=== PATIENT | male | born 1990 | race Caucasian/White ===

== ENCOUNTER 2016-05-03 09:32 | Emergency (ER) | payer SELFPAY ==
[~2016-05-03] VITALS: Ht 167.6 cm; Wt 81.0 kg
[2016-05-03 09:36] VITALS: Ht 167.6 cm; Wt 81.0 kg
[2016-05-03] MEDS ORDERED: HYDROCODONE/APAP (5/325) TAB PO ONE (10:30)
[2016-05-03] MEDS ORDERED: ONDANSETRON (ODT) 4 MG TAB ODT STA (11:13)
--- NOTE | 2016-05-03 11:39 | RADRPT ---
PROCEDURE: CT Brain without. CLINICAL INDICATION: Headache and neck pain TECHNIQUE: A CT of the brain was performed utilizing axial sections from the skull base through th e vertex without contrast. The scan was reviewed in soft tissue brain and high frequency resolution bone algorithm windows. Images were reviewed on a high-resolution PACS workstation. The exam DLP = 634 mGy-cm. One or more of the following dose reduction techniques were used: Automated exposure control Adjustment of the mA and/or kV according to patient size. Use of iterative reconstruction technique. COMPARISON: None available FINDINGS: The ventricles and sulci are symmetric and normal in size and morphology. There is no acute intracr anial hemorrhage, an acute large territorial infarct, an abnormal extra-axial fluid collection, or a space-occupying intracranial mass. There is no mass effect or midline shift. The dominguez-white matte r differentiation is intact. The posterior fossa, brainstem, and basal cisterns are unremarkable. The subcutaneous soft tissues and scalp are unremarkable. There are no acute fractures. The visual ized mastoid air cells and paranasal sinuses are clear. The bilateral globes and orbits are unremar kable. RPTAT: AA IMPRESSION: No acute intracranial abnormality. .Micheline Norman MD, MD Date Time Electronically viewed and signed by .Micheline Norman MD, on 05/03/2016 11:38 .T/
--- NOTE | 2016-05-03 11:42 | RADRPT ---
PROCEDURE: CT CERVICAL SPINE WITHOUT CONTRAST CLINICAL INDICATION: Headache and neck pain for 5 days TECHNIQUE: CT scan of the cervical spine was performed. No IV contrast was administered. Coronal and sagittal reformatted images were obtained from the axial source images. Images were reviewed on a high-resolution PACS workstation. Dose report: Total exam DLP: 523 mGy-cm. CDTIvol = 22 mGy. One or more of the following dose reduction techniques were used: Automated exposure control Adjustment of the mA and/or kV according to patient size. Use of iterative reconstruction technique. COMPARISON: None FINDINGS: The vertebral body heights are preserved. There are no acute fractures. The craniocervical junctio n and C1-C2 articulation are intact. The prevertebral and paravertebral soft tissues are unremarkabl e. Findings at specific disc levels: C2-3: Normal disk height. No central canal or neural foraminal narrowing. C3-4: Normal disk height. Minimal anterolisthesis. No central canal or neural foraminal narrowing. C4-5: Normal disk height. No central canal or neural foraminal narrowing. C5-6: Normal disk height. No central canal or neural foraminal narrowing. C6-7: Normal disk height. No central canal or neural foraminal narrowing. C7-T1: Normal disk height. No central canal or neural foraminal narrowing. RPTAT: AA IMPRESSION: No acute bony abnormality. No significant degenerative disk disease within the cervical spine. No central canal or neural foraminal narrowing. .Micheline Norman MD, Date Time Electronically viewed and signed by .Micheline Norman MD, on 05/03/2016 11:41 .T/
[2016-05-03] MEDS ORDERED: KETOROLAC 30 MG INJ IM STA (11:59)
--- NOTE | 2016-05-03 11:59 | ERD ---
ER Documentation Chief Complaint Date/Time DATE: 05/03/16 TIME: 11:58 Chief Complaint NECK PAIN /HEADCAHE X 5 DAYS , NO TRAUMA HPI This is a 25-year-old male who presents to the emergency department today complaining of left-sided neck pain and headache for the past 5 days. 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 States he is taking Excedrin for the pain. Denies any nausea vomiting blurred vision, fevers or chills. ROS All systems reviewed and are negative except as per history of present illness. Medications Home Meds Active Scripts Cyclobenzaprine Hcl* (Cyclobenzaprine Hcl*) 10 Mg Tablet, 10 MG PO QHS, #7 TAB Prov:GORDY AWAD PA-C 05/03/16 Naproxen* (Naprosyn*) 500 Mg Tablet, 500 MG PO BID Y for PAIN AND/OR INFLAMMATION, #30 TAB Prov:GORDY AWAD PA-C 05/03/16 Hydrocodone/Acetaminophen ([place] 5-325 Tablet) 1 Each Tablet, 1 TAB PO Q6H Y for PAIN, #12 TAB Prov:GORDY AWADC 05/03/16 Allergies Allergies: Coded Allergies: Penicillins (Unverified Allergy, Unknown, 05/03/16) Uncoded Allergies: PENICILIN (Allergy, Unknown, 05/03/16) PMhx/Soc History of Surgery: No Anesthesia Reaction: No Hx Neurological Disorder: No Hx Respiratory Disorders: No Hx Cardiac Disorders: No Hx Psychiatric Problems: No Hx Miscellaneous Medical Probl: No Hx Alcohol Use: No Hx Substance Use: No Hx Tobacco Use: No Physical Exam Vitals Vital Signs Date Time Temp Pulse Resp B/P Pulse Ox O2 Delivery O2 Flow Rate FiO2 05/03/16 09:36 98.3 96 18 116/64 98 Physical Exam Const: No acute distress Head: Atraumatic Eyes: Normal Conjunctiva. PERRLA. EOM intact ENT: Normal External Ears, Nose and Mouth. Neck: Full range of motion..~ No meningismus. Tenderness palpation left-sided paraspinal. No midline tenderness. Resp: Clear to auscultation bilaterally Cardio: Regular rate and rhythm, no murmurs Skin: No petechiae or rashes Back: No midline or flank tenderness Ext: No cyanosis, or edema Neur: Awake and alert. No focal neurologic deficits. No gait ataxia. Psych: Normal Mood and Affect Results 24 hrs Current Medications Medications (Trade) Dose Ordered Sig/[place] Route PRN Reason Start Time Stop Time Status Last Admin Dose Admin Acetaminophen/ Hydrocodone Bitart ([place] (5/325)) 1 tab ONCE ONCE PO 05/03/16 10:30 05/03/16 10:31 DC 05/03/16 10:20 Ondansetron HCl (Zofran Odt) 4 mg ONCE STAT ODT 05/03/16 11:13 05/03/16 11:14 DC 05/03/16 11:17 Ketorolac Tromethamine (Toradol) 30 mg ONCE STAT IM 05/03/16 11:59 05/03/16 12:00 DC 05/03/16 12:05 DIAGNOSTIC IMAGING REPORT Patient: VANESSA HUTTON : 1990 Age: 25 Sex: M MR #: [id number] DOS: 05/03/16 0000 Ordering MD: GORDY AWAD PA-C Location: [facility] Room/Bed: PROCEDURE: CT CERVICAL SPINE WITHOUT CONTRAST CLINICAL INDICATION: Headache and neck pain for 5 days TECHNIQUE: CT scan of the cervical spine was performed. No IV contrast was administered. Coronal and sagittal reformatted images were obtained from the axial source images. Images were reviewed on a high-resolution PACS workstation. Dose report: Total exam DLP: 523 mGy-cm. CDTIvol = 22 mGy. One or more of the following dose reduction techniques were used: Automated exposure control Adjustment of the mA and/or kV according to patient size. Use of iterative reconstruction technique. COMPARISON: None FINDINGS: The vertebral body heights are preserved. There are no acute fractures. The craniocervical junction and C1-C2 articulation are intact. The prevertebral and paravertebral soft tissues are unremarkable. Findings at specific disc levels: C2-3: Normal disk height. No central canal or neural foraminal narrowing. C3-4: Normal disk height. Minimal anterolisthesis. No central canal or neural foraminal narrowing. C4-5: Normal disk height. No central canal or neural foraminal narrowing. C5-6: Normal disk height. No central canal or neural foraminal narrowing. C6-7: Normal disk height. No central canal or neural foraminal narrowing. C7-T1: Normal disk height. No central canal or neural foraminal narrowing. RPTAT: AA IMPRESSION: No acute bony abnormality. No significant degenerative disk disease within the cervical spine. No central canal or neural foraminal narrowing. .Micheline Norman MD, Date Time Electronically viewed and signed by .Micheline Norman MD, MD on 05/03/2016 11: 41 .T/ CC: GORDY AWAD PA-C DIAGNOSTIC IMAGING REPORT Patient: VANESSA HUTTON : 1990 Age: 25 Sex: M MR #: [id number] DOS: 05/03/16 0000 Ordering MD: GORDY AWAD PA-C Location: [facility] Room/Bed: PROCEDURE: CT Brain without. CLINICAL INDICATION: Headache and neck pain TECHNIQUE: A CT of the brain was performed utilizing axial sections from the skull base through the vertex without contrast. The scan was reviewed in soft tissue brain and high frequency resolution bone algorithm windows. Images were reviewed on a high-resolution PACS workstation. The exam DLP = 634 mGy-cm. One or more of the following dose reduction techniques were used: Automated exposure control Adjustment of the mA and/or kV according to patient size. Use of iterative reconstruction technique. COMPARISON: None available FINDINGS: The ventricles and sulci are symmetric and normal in size and morphology. There is no acute intracranial hemorrhage, an acute large territorial infarct, an abnormal extra-axial fluid collection, or a space-occupying intracranial mass. There is no mass effect or midline shift. The dominguez-white matter differentiation is intact. The posterior fossa, brainstem, and basal cisterns are unremarkable. The subcutaneous soft tissues and scalp are unremarkable. There are no acute fractures. The visualized mastoid air cells and paranasal sinuses are clear. The bilateral globes and orbits are unremarkable. RPTAT: AA IMPRESSION: No acute intracranial abnormality. .Micheline Norman MD, Date Time Electronically viewed and signed by .Micheline Norman MD, on 05/03/2016 11: 38 .T/ CC: GORDY AWAD PA-C Procedures/MDM This 25-year-old male who presents to the emergency department today complaining of left-sided neck pain and headache that has been ongoing for the past 5 days and is persistent. Patient did not have any focal neurologic deficits and no gait ataxia and therefore I did not initially order a CT scan however patient was given Hartford here in the emergency department patient was complaining of persistent headache. Patient was also nauseated. He is then given Zofran after the [place]. Given the patient's persistent headache I did discuss the patient with Dr. Navarro and he has recommended a head and cervical spine CT. Head CT is unremarkable. There is no acute intracranial abnormality. There is no mass-effect or midline shift. Low suspicion for acute hemorrhage, mass, abscess. Cervical spine CT shows no acute bony abnormality. There is no significant degenerative disc disease within the cervical spine. There is no central canal or neural foraminal narrowing. Patient symptoms at this time most consistent with neck strain versus muscle spasm likely causing tension type headache. Patient is afebrile and otherwise well-appearing. He does have full range of motion of his neck and I have low suspicion for meningitis, abscess. Patient was then given a Toradol injection. Patient will be discharged home with Naprosyn, Flexeril and a short course of Hartford. At this time the patient is stable for discharge and outpatient management. Patient should follow up with their PCP in the next 1-2 days. They may return to the emergency department sooner for any persistent or worsening of symptoms. Patient understood and agreed with the plan. Departure Diagnosis: Primary Impression: Headache Headache type: tension-type Headache chronicity pattern: unspecified pattern Intractability: not intractable Qualified Code: G44.209 - Tension- type headache, not intractable, unspecified chronicity pattern Additional Impression: Neck pain Condition: GORDY Oh PA-C May 03, 2016 11:59
[2016-05-03] MEDS ORDERED: HYDR-906 PO (12:05)
[2016-05-03] MEDS ORDERED: NAPR-260 PO (12:06)
[2016-05-03] MEDS ORDERED: CYCL-319 PO (12:06)
== END 2016-05-03 12:16 | disposition home or self-care (01) ==
LOC: FTE 09:32
DX: G44.209 Tension-type headache, unspecified, not intractable (principal); M54.2 Cervicalgia
CPT/HCPCS: 70450; 72125; 96372; 99285; J1885

== ENCOUNTER 2018-01-27 23:03 | Emergency (ER) | END 2018-01-28 01:09 | disposition home or self-care (01) ==

== ENCOUNTER 2018-03-06 09:43 | Emergency (ER) | payer OTHER ==
[~2018-03-06] VITALS: Ht 165.1 cm; Wt 82.6 kg
[~2018-03-06 09:43] MED LIST: CYCL10TA7 PO; HYDR-4011 PO; NAPR-985 PO; ONDA4TAB14 PO
[2018-03-06 09:50] VITALS: BP 115/71; PULSE 74; RESP 20; Ht 165.1 cm; Wt 82.6 kg
--- NOTE | 2018-03-06 10:23 | ERD ---
ER Documentation Chief Complaint Chief Complaint Complains of chest wall pain x 1 week HPI 27-year-old male, with history of anxiety, presents to the emergency department, complaining of 2 months with intermittent episodes of left anterior chest wall pain, worsened by palpation and movement of the left arm. The pain he has been getting worse during the last 2 days. The patient denies any shortness of breath, no dizziness, no palpitations, no history of trauma or upper respiratory infection. ROS All systems reviewed and are negative except as per history of present illness. Medications Home Meds Active Scripts Acetaminophen* (Tylenol*) 325 Mg Tablet, 2 TAB PO Q8 PRN for PAIN AND OR ELEVATED TEMP, #20 TAB Prov:ESTELLE DELUCA MD 03/06/18 Ondansetron (Ondansetron Odt) 4 Mg Tab.rapdis, 4 MG PO Q6H PRN for NAUSEA AND/OR VOMITING, #10 TAB Prov:GREGORIO LYNN PA-C 01/28/18 Cyclobenzaprine Hcl* (Cyclobenzaprine Hcl*) 10 Mg Tablet, 10 MG PO QHS, #7 TAB Prov:GORDY AWAD PA-C 05/03/16 Naproxen* (Naprosyn*) 500 Mg Tablet, 500 MG PO BID PRN for PAIN AND/OR INFLAMMATION, #30 TAB Prov:GORDY AWAD PA-C 05/03/16 Hydrocodone/Acetaminophen ([place] 5-325 Tablet) 1 Each Tablet, 1 TAB PO Q6H PRN for PAIN, #12 TAB Prov:GORDY AWAD PA-C 05/03/16 Allergies Allergies: Coded Allergies: Penicillins (Unverified Allergy, Unknown, 05/03/16) Uncoded Allergies: PENICILIN (Allergy, Unknown, 05/03/16) PMhx/Soc History of Surgery: No Anesthesia Reaction: No Hx Neurological Disorder: No Hx Respiratory Disorders: No Hx Cardiac Disorders: No Hx Psychiatric Problems: No Hx Miscellaneous Medical Probl: No Hx Alcohol Use: No Hx Substance Use: No Hx Tobacco Use: No FmHx Family History: diabetes, coronary disease Physical Exam Vitals Vital Signs Date Temp Pulse Resp B/P (MAP) Pulse Ox O2 O2 Flow FiO2 Time Delivery Rate 03/06/18 98.1 74 20 115/71 98 09:50 (86) Physical Exam Const: No acute distress Head: Atraumatic Eyes: Normal Conjunctiva ENT: Normal External Ears, Nose and Mouth. Neck: Full range of motion. No meningismus. Resp: Clear to auscultation bilaterally. Mild tenderness to palpation of the anterior chest wall. No deformity, no crepitus. Cardio: Regular rate and rhythm, no murmurs Abd: Soft, non tender, non distended. Normal bowel sounds Skin: No petechiae or rashes Back: No midline or flank tenderness Ext: No cyanosis, or edema Neur: Awake and alert Psych: Normal Mood and Affect Results 24 hrs EKG read by me: Rate/Rhythm: Regular rate and rhythm at a rate of 72 Intervals: Normal No acute ST changes. No T wave inversion Impression: No evidence of acute ischemia or arrhythmia Procedures/MDM Vital signs stable. Differential diagnosis include but not limited to: URI, PNA, chostochondritis, GERD, musculoskeletal injury, less likely PE, pericarditis, endocarditis. Pertinent Data: 12 Lead ECG: Sinus rhythm, no ST changes, normal T wave, normal intervals Radiology: Chest x-rays: Normal Physical examination and clinical presentation consistent most likely with atypical chest pain most likely secondary to costochondritis. During the ED course the patient remained stable, no new complaints. Results and clinical impression discussed with patient who agrees with management. The patient is stable to be treated outpatient and will be discharged home with a Rx for ibuprofen, some side effects of prescribed medications (headache, rash, nausea, vomiting, diarrhea, drowsiness, habituation, bleeding, hypertension, interactions with other medications) were reviewed. The patient was instructed to follow up with the primary care provider in the next 48h. If symptoms persist, worsen or new symptoms develop, then patient should return to the ED immediately. Instructions explained and given directly by me to the patient with acknowledgment and demonstrated understanding. Disclaimer: Inadvertent spelling and grammatical errors are likely due to EHR/dictation software use and do not reflect on the overall quality of patient care. Also, please note that the electronic time recorded on this note does not necessarily reflect the actual time of the patient encounter. Departure Diagnosis: Primary Impression: Costochondritis Condition: Stable Additional Instructions: Thank you very much for allowing us to participate in your care. Your health and safety is our top priority at [facility]. Call your primary care doctor TOMORROW for an appointment during the next 2-4 days and bring all the information and medications prescribed. Have prescriptions filled and follow precisely the directions on the label. If the symptoms get worse and your provider is unavailable, return to the Emergency Department immediately. ESTELLE DELUCA MD Mar 06, 2018 10:23
[2018-03-06] MEDS ORDERED: ACET325T33 PO (11:06)
== END 2018-03-06 11:30 | disposition home or self-care (01) ==
LOC: FTE 09:43
DX: M94.0 Chondrocostal junction syndrome [Tietze] (principal)
CPT/HCPCS: 71046; 93005; Z7502

== ENCOUNTER 2018-05-02 09:46 | Emergency (ER) | payer OTHER ==
[~2018-05-02] VITALS: Ht 167.6 cm; Wt 77.2 kg
[~2018-05-02 09:46] MED LIST changes: +ACET325T33 PO
[2018-05-02 10:01] VITALS: Ht 167.6 cm; Wt 77.2 kg
[2018-05-02] MEDS ORDERED: ONDA4TAB14 PO (13:16)
[2018-05-02 13:55] VITALS: BP 122/70; PULSE 67; RESP 18
--- NOTE | 2018-05-02 15:03 | ERD ---
ER Documentation Chief Complaint Chief Complaint Complains of fever with numbness x 3 days HPI 27-year-old male presenting with complaints of "feeling hot". Patient states he feels his skin is boiling. He has no rashes. He has not taken medications for symptoms. Denies abdominal pain. Denies coughing. Denies runny nose. Denies sore throat. Denies abdominal pain. States that he feels nauseous but no vomiting. Has not taken medications for symptoms. Has no documented fevers. Denies medical problems. Allergy to penicillin. Surgical history denies. Social history denies ROS All systems reviewed and are negative except as per history of present illness. Medications Home Meds Active Scripts Ondansetron (Ondansetron Odt) 4 Mg Tab.rapdis, 4 MG PO Q6H PRN for NAUSEA AND/OR VOMITING, #10 TAB Prov:KEVIN GOODWIN PA-C 05/02/18 Acetaminophen* (Tylenol*) 325 Mg Tablet, 2 TAB PO Q8 PRN for PAIN AND OR ELEVATED TEMP, #20 TAB Prov:ESTELLE DELUCA MD 03/06/18 Ondansetron (Ondansetron Odt) 4 Mg Tab.rapdis, 4 MG PO Q6H PRN for NAUSEA AND/OR VOMITING, #10 TAB Prov:GREGORIO LYNN PA-C 01/28/18 Cyclobenzaprine Hcl* (Cyclobenzaprine Hcl*) 10 Mg Tablet, 10 MG PO QHS, #7 TAB Prov:GORDY AWAD PA-C 05/03/16 Naproxen* (Naprosyn*) 500 Mg Tablet, 500 MG PO BID PRN for PAIN AND/OR INFLAMMATION, #30 TAB Prov:GORDY AWAD PA-C 05/03/16 Hydrocodone/Acetaminophen ([place] 5-325 Tablet) 1 Each Tablet, 1 TAB PO Q6H PRN for PAIN, #12 TAB Prov:GORDY AWAD PA-C 05/03/16 Allergies Allergies: Coded Allergies: Penicillins (Unverified Allergy, Unknown, 05/03/16) Uncoded Allergies: PENICILIN (Allergy, Unknown, 05/03/16) PMhx/Soc Medical and Surgical Hx: pt denies Medical Hx, pt denies Surgical Hx History of Surgery: No Anesthesia Reaction: No Hx Neurological Disorder: No Hx Respiratory Disorders: No Hx Cardiac Disorders: No Hx Psychiatric Problems: No Hx Miscellaneous Medical Probl: No Hx Alcohol Use: No Hx Substance Use: No Hx Tobacco Use: No Smoking Status: Never smoker FmHx Family History: No diabetes, No coronary disease, No other Physical Exam Vitals Vital Signs Date Temp Pulse Resp B/P (MAP) Pulse Ox O2 O2 Flow FiO2 Time Delivery Rate 05/02/18 98.6 67 18 122/70 98 Room Air 13:55 (87) 05/02/18 98.6 71 20 119/71 98 10:01 (87) Physical Exam GENERAL: The patient is well-appearing, well-nourished, in no acute distress HEENT: Atraumatic. Conjunctivae are pink. Pupils equal, round, and reactive to light. There is no scleral icterus. Tympanic membranes clear bilaterally. Oropharynx clear. NECK: C-spine is soft and supple. There is no meningismus. There is no cervical lymphadenopathy. CHEST: Clear to auscultation bilaterally. There are no rales, wheezes or rhonchi. HEART: Regular rate and rhythm. No murmurs, clicks, rubs or gallops. ABDOMEN:Soft, nontender and nondistended. Good bowel sounds. No rebound or guarding. No gross peritonitis. No gross organomegaly or masses. No Lloyd sign or McBurney point tenderness. Result Diagram: 05/02/18 1130 05/02/18 1130 Results 24 hrs Laboratory Tests Test 05/02/18 11:30 White Blood Count 5.9 10^3/ul Red Blood Count 5.55 10^6/ul Hemoglobin 15.9 g/dl Hematocrit 48.8 % Mean Corpuscular Volume 87.9 fl Mean Corpuscular Hemoglobin 28.6 pg Mean Corpuscular Hemoglobin Concent 32.6 g/dl Red Cell Distribution Width 12.1 % Platelet Count 239 10^3/UL Mean Platelet Volume 9.9 fl Immature Granulocytes % 0.200 % Neutrophils % 49.8 % Lymphocytes % 40.7 % Monocytes % 8.0 % Eosinophils % 1.0 % Basophils % 0.3 % Nucleated Red Blood Cells % 0.0 /100WBC Immature Granulocytes # 0.010 10^3/ul Neutrophils # 2.9 10^3/ul Lymphocytes # 2.4 10^3/ul Monocytes # 0.5 10^3/ul Eosinophils # 0.1 10^3/ul Basophils # 0.0 10^3/ul Nucleated Red Blood Cells # 0.0 10^3/ul Urine Color STRAW Urine Clarity CLEAR Urine pH 7.0 Urine Specific [place] 1.003 Urine Ketones NEGATIVE mg/dL Urine Nitrite NEGATIVE mg/dL Urine Bilirubin NEGATIVE mg/dL Urine Urobilinogen NEGATIVE mg/dL Urine Leukocyte Esterase NEGATIVE Stephanie/ul Urine Hemoglobin NEGATIVE mg/dL Urine Glucose NEGATIVE mg/dL Urine Total Protein NEGATIVE mg/dl Sodium Level 144 mmol/L Potassium Level 4.5 mmol/L Chloride Level 101 mmol/L Carbon Dioxide Level 30 mmol/L Anion Gap 13 Blood Urea Nitrogen 10 mg/dl Creatinine 0.78 mg/dl Est Glomerular Filtrat Rate mL/min > 60 mL/min Glucose Level 89 mg/dl Calcium Level 10.1 mg/dl Total Bilirubin 0.5 mg/dl Direct Bilirubin 0.00 mg/dl Indirect Bilirubin 0.5 mg/dl Aspartate Amino Transf (AST/SGOT) 25 IU/L Alanine Aminotransferase (ALT/SGPT) 38 IU/L Alkaline Phosphatase 84 IU/L Total Protein 8.5 g/dl Albumin 5.1 g/dl Globulin 3.40 g/dl Albumin/Globulin Ratio 1.50 Thyroid Stimulating Hormone (TSH) 1.470 MIU/L Free Thyroxine Index 2.41 ug/ml Thyroxine (T4) 7.8 ug/dl Triiodothyronine (T3) Uptake 30.9 % Procedures/MDM MDM: 27-year-old male presenting with feelings of his blood boiling. Patient's blood work is stable. Patient's vitals are stable patient's exam is non- concerning. Patient is told to take medication for antipyretics. Patient is told symptoms change or worsen to immediately return to the ER. All questions answered at discharge Departure Diagnosis: Primary Impression: Nausea and vomiting Condition: Stable Patient Instructions: Nausea and Vomiting-Adult Referrals: COMM[facility]ITY CLIN[facility] YOU HAVE RECEIVED A MEDICAL SCREENING EXAM AND THE RESULTS INDICATE THAT YOU DO NOT HAVE A CONDITION THAT REQUIRES URGENT TREATMENT IN THE EMERGENCY DEPARTMENT. FURTHER EVALUATION AND TREATMENT OF YOUR CONDITION CAN WAIT UNTIL YOU ARE SEEN IN YOUR DOCTORS OFFICE WITHIN THE NEXT 1-2 DAYS. IT IS YOUR RESPONSIBILITY TO MAKE AN APPOINTMENT FOR FOLOW-UP CARE. IF YOU HAVE A PRIMARY DOCTOR --you should call your primary doctor and schedule an appointment IF YOU DO NOT HAVE A PRIMARY DOCTOR YOU CAN CALL OUR PHYSICIAN REFERRAL HOTLINE AT IF YOU CAN NOT AFFORD TO SEE A PHYSICIAN YOU CAN CHOSE FROM THE FOLLOWING [facility] [id number] [facility] [address] [facility] [address] [facility] [address] [facility] [address] [facility] [facility] [address] Additional Instructions: FOLLOW UP WITH YOUR PRIMARY CARE PHYSICIAN TOMORROW.Return to this facility if you are not improving as expected. KEVIN GOODWIN PA-C May 02, 2018 15:03
== END 2018-05-02 13:57 | disposition home or self-care (01) ==
LOC: FTE 09:46
DX: R11.2 Nausea with vomiting, unspecified (principal)
CPT/HCPCS: 36415; 80053; 81003; 84436; 84443; 84479; 85025; Z7502; 99283

== ENCOUNTER 2018-08-15 14:20 | Emergency (ER) | payer OTHER ==
[~2018-08-15] VITALS: Ht 160 cm; Wt 67.6 kg
[2018-08-15 14:33] VITALS: BP 132/79; PULSE 84; RESP 18; Ht 160 cm; Wt 67.6 kg
--- NOTE | 2018-08-15 16:00 | ERD ---
ER Documentation Chief Complaint Chief Complaint Rt side numbness since am, denies weakness, no neuro deficient. HPI 27-year-old male, with history of anxiety, presents to the emergency department, concerned about acute right upper abdomen numbness that started this morning while the patient [place] the [place]. Per patient, the symptoms are improving but he is concerned because he recently started a very healthy diet to help to treat the anxiety. ROS All systems reviewed and are negative except as per history of present illness. Medications Home Meds Active Scripts Lorazepam* (Ativan*) 0.5 Mg Tablet, 0.5 MG PO Q8H PRN for ANXIETY, #10 TAB Prov:ESTELLE DELUCA MD 08/15/18 Ondansetron (Ondansetron Odt) 4 Mg Tab.rapdis, 4 MG PO Q6H PRN for NAUSEA AND/OR VOMITING, #10 TAB Prov:KEVIN GOODWIN PA-C 05/02/18 Acetaminophen* (Tylenol*) 325 Mg Tablet, 2 TAB PO Q8 PRN for PAIN AND OR ELEVATED TEMP, #20 TAB Prov:ESTELLE DELUCA MD 03/06/18 Ondansetron (Ondansetron Odt) 4 Mg Tab.rapdis, 4 MG PO Q6H PRN for NAUSEA AND/OR VOMITING, #10 TAB Prov:GREGORIO LYNN PA-C 01/28/18 Cyclobenzaprine Hcl* (Cyclobenzaprine Hcl*) 10 Mg Tablet, 10 MG PO QHS, #7 TAB Prov:GORDY AWAD PA-C 05/03/16 Naproxen* (Naprosyn*) 500 Mg Tablet, 500 MG PO BID PRN for PAIN AND/OR INFLAMMATION, #30 TAB Prov:GORDY AWAD PA-C 05/03/16 Hydrocodone/Acetaminophen ([place] 5-325 Tablet) 1 Each Tablet, 1 TAB PO Q6H PRN for PAIN, #12 TAB Prov:GORDY AWAD PA-C 05/03/16 Allergies Allergies: Coded Allergies: Penicillins (Unverified Allergy, Unknown, 05/03/16) Uncoded Allergies: PENICILIN (Allergy, Unknown, 05/03/16) PMhx/Soc History of Surgery: No Anesthesia Reaction: No Hx Neurological Disorder: No Hx Respiratory Disorders: No Hx Cardiac Disorders: No Hx Psychiatric Problems: Yes (Anxiety) Hx Miscellaneous Medical Probl: No Hx Alcohol Use: No Hx Substance Use: No Hx Tobacco Use: No FmHx Family History: other (Mother with anxiety) Physical Exam Vitals Vital Signs Date Temp Pulse Resp B/P (MAP) Pulse Ox O2 O2 Flow FiO2 Time Delivery Rate 08/15/18 98.4 84 18 132/79 100 14:33 (96) Physical Exam Const: No acute distress Head: Atraumatic Eyes: Normal Conjunctiva ENT: Normal External Ears, Nose and Mouth. Neck: Full range of motion. No meningismus. Resp: Clear to auscultation bilaterally Cardio: Regular rate and rhythm, no murmurs Abd: Soft, non tender, non distended. Normal bowel sounds Skin: No petechiae or rashes Back: No midline or flank tenderness Ext: No cyanosis, or edema Neur: Awake and alert Psych: Normal Mood and Affect Procedures/MDM Vital signs stable, Physical exam unremarkable, neurovascular exam intact. Differential diagnosis include but not limited to: Depression, anxiety, migraine, thyroid disease, electrolyte imbalance. Low suspicion for acute coronary event, aortic dissection, CVA. Physical examination and clinical presentation consistent most likely with anxiety. During the ED course the patient remained stable. Clinical impression discussed with patient and mother. The patient is stable to be treated outpatient and will be discharged home with a Rx for lorazepam, some side effects of prescribed medications (headache, rash, nausea, vomiting, diarrhea, drowsiness, habituation, bleeding, hypertension, interactions with other medications) were reviewed. The patient was instructed to follow up with the primary care provider in the next 48h. If symptoms persist, worsen or new symptoms develop, then patient should return to the ED immediately. Instructions explained and given directly by me to the patient with acknowledgment and demonstrated understanding. Disclaimer: Inadvertent spelling and grammatical errors are likely due to EHR/dictation software use and do not reflect on the overall quality of patient care. Also, please note that the electronic time recorded on this note does not necessarily reflect the actual time of the patient encounter. Departure Diagnosis: Primary Impression: Anxiety Condition: Stable Patient Instructions: Your Body's Response to Anxiety Additional Instructions: Thank you very much for allowing us to participate in your care. Your health and safety is our top priority at [facility]. The evaluation in the emergency department has been done to rule out an acute emergency. Chronic, [id number] conditions may have not been evaluated; therefore, you need to follow up with a primary care provider in the next 48h. If symptoms persist, worsen or new symptoms develop, then patient should return to the ED immediately. Call your primary care doctor TOMORROW for an appointment during the next 2-4 days and bring all the information provided. Have prescriptions filled and follow precisely the directions on the label. If the symptoms get worse and your provider is unavailable, return to the Emergency Department immediately. ESTELLE DELUCA MD Aug 15, 2018 16:00
[2018-08-15] MEDS ORDERED: LORA-441 PO (16:01)
== END 2018-08-15 16:20 | disposition home or self-care (01) ==
LOC: FTE 14:20
DX: F41.9 Anxiety disorder, unspecified (principal)
CPT/HCPCS: 99283